=== PATIENT | male | born 1975 | race Caucasian/White ===

== ENCOUNTER 2016-12-17 07:30 | Inpatient (IN) | payer OTHER ==
[~2016-12-17] VITALS: Ht 182.9 cm; Wt 102.8 kg
--- NOTE | ~2016-12-17 | TXPLANREV ---
"PATIENT: ROSHNI LUGO | | [facility] [facility] UNIT #: [id number] | [address] AGE/SEX: 41 M : 73 | [address] | [place] [address] ADMIT/REG DATE: 12/17/16 | ROOM: [facility] LOC: ADTC | ADTC | Treatment Plan/Staffing Review Date: 12/26/16 Treatment plan was reviewed and determined appropriate as written: Yes Treatment plan was reviewed and the following changes/addition/deletions are necessary: No changes client is working on feelings letters. Discharge plans were reviewed and determined appropriate as previously documented: Yes Discharge plans were reviewed and determined to be as follows: Possibly lookingat a 3/4 house in [place]. Other pertinent issues discussed during this staffing review include: Client is doing well. Staff Present: Smitha Kaur PRIMARY COUNSELOR: True Montes De Oca, ASUNCION, LADC, CSAT Client Signature Counselor Signature Date Time "
--- NOTE | ~2016-12-17 | TXPLANREV ---
"PATIENT: ROSHNI LUGO | | [facility] UNIT #: [id number] | [address] AGE/SEX: 41 M : 73 | [address] | [place] [address] ADMIT/REG DATE: 12/17/16 | ROOM: [facility] LOC: ADTC | ADTC | Treatment Plan/Staffing Review Date: 01/09/17 Treatment plan was reviewed and determined appropriate as written: Yes Treatment plan was reviewed and the following changes/addition/deletions are necessary: No changes Discharge plans were reviewed and determined appropriate as previously documented: Yes Discharge plans were reviewed and determined to be as follows: Client is scheduled to discharge on 01/21/17 but will leave on 01/20/17 after family group. Other pertinent issues discussed during this staffing review include: Client getting into and OP program when he discharges from here. Staff Present: Fiona Shields, Pam Dunlap, Christine Hamilton, Sharon Zavaleta PRIMARY COUNSELOR: True Montes De Oca, ASUNCION, ROSE, VICT Client Signature Counselor Signature Date Time "
--- NOTE | ~2016-12-17 | INDIVTXPLN ---
"PATIENT: ROSHNI LUGO | | [facility] UNIT #: [id number] | [address] AGE/SEX: 41 M : 73 | [address] | [place] [address] ADMIT/REG DATE: 12/17/16 | [facility] | Individualized Treatment Plan Date: 12/23/16 Problem Statement/Issue Identified: I struggles having healthy relationships. Goal: I want to be able to have a healthy relationship. Objectives/Activities to achieve goal: 1. I will read and complete a relationship packet and process it with my counselor. Due Date:12/26/16 Complete: Incomplete: Client signature Date Counselor signature Date Outcome/Measurement of Progress Towards Goal: Counselor's signature Date "
--- NOTE | ~2016-12-17 | RESCARESUM ---
"PATIENT: ROSHNI LUGO | | [facility] UNIT #: [id number] | [address] AGE/SEX: 41 M : 73 | [address] | [place] [address] ADMIT/REG DATE: 12/17/16 | ROOM: [facility] LOC: ADTC | ADTC | Summary of Residential Care Primary Counselor: [facility] Date of Admission: 12/17/16 Date of Discharge: 01/13/17 Referral Source: [facility] Primary Care Provider Prior to Admission: None Admitting Diagnosis: F10.20 Alcohol Use Disorder Severe, F11.10 Opioid Use Disorder Severe, F12.20 Pot Use Disorder Moderate Discharge Diagnosis: Same Goals Achieved: Client identified things to work on from his Getting Started Packet, He identified how he is powerless over chemicals and how he life became unmanagable with his step one. Client worked on resentments, how to identify and share his feelings and he identified his using triggers and what he can do to avoid or deal with those triggers. Continued Obstacles to Sobriety/Relapse Issues: Over confodence, boredome and skiping meetings. Family Issues Addressed: Client shared feelings letters with his family. y Individual Therapy y Group Therapy y Educational Series on Substance Abuse y Parents/Significant Others Attended Family Program n Acute Medical Problems During the Course of Treatment n Transferred to Hospital During the Course of Treatment y Accepting of Substance Abuse Problem n Non-accepting of Substance Abuse Problem n Required Psychological or Psychiatric Consultation During the Course of Treatment Completed AA Step # one During This Level of Care Significant Incidences During Treatment: Client did well in treatment. Reason For Discharge: y Completed Residential [place] Goals and Ready For Next Level of Care n Left Tx Against Medical Advice/Treatment Goals Not Complete n Completed Residential Tx Goals But Refusing Continuing Care Recommendations n Discharged Due to Noncompliance/Treatment Goals not Completed n Discharged Earlier Than Planned Due to: Continuing Care Plan/Recommendations: n Intensive Partial Care y Sponsor n Partial Care PATIENT: ROSHNI LUGO | | [facility] UNIT #: [id number] | [address] AGE/SEX: 41 M : 73 | [address] | [place] [address] ADMIT/REG DATE: 12/17/16 | ROOM: [facility] LOC: ADTC | ADTC | Summary of Residential Care y AA Meetings/NA Meetings y Outpatient n Co-dependency Services n Therapeutic Community n [address] y [address] House n Mental Health Therapy n Marriage Counseling n Other Specific Continuing Care Plan: Client is still looking fora a place to live and will set up aftercare when he has done that. PRIMARY COUNSELOR: True Montes De Oca, ASUNCION, LADC, CSAT"
--- NOTE | ~2016-12-17 | INDIVTXPLN ---
"PATIENT: ROSHNI LUGO | | [facility] UNIT #: [id number] | [address] AGE/SEX: 41 M : 73 | [address] | [place] [address] ADMIT/REG DATE: 12/17/16 | ROOM: [facility] LOC: ADTC | ADTC | Individualized Treatment Plan Date: 12/23/16 Problem Statement/Issue Identified: I continued to use even though I was in a treatment program. I have not been able to manage my life in a positive manner. Goal: I want to learn about my addiction and identify consequences of my use and learn to work the AA/NA program. Objectives/Activities to achieve goal: 1. I will read and fill out the Getting Started packet, identifying my feelings about being in treatment and identifying things I do now and things I need to work on as evidenced by his progress notes. Due Date:12/23/16 Complete: Incomplete: 2. I will read a Step 1 booklet and fill out a Step 1 packet identifying 20+ ways I have hurt others and compromised my values (page 10 - 11 of Step 1). This will also help me see how I am powerless and that my life has become unmanageable. I will share it with my counselor and selected parts in group as evidenced by individual and group notes. Due Date:12/23/16 Complete: Incomplete: 3. I will talk at a minimum of 2 meetings a week and get a phone number of a male sponsor I can call while I am in treatment on weekends. I will report my progress to my counselor as evidenced by individual notes. Due Date:On going Complete: Incomplete: 4. I will create gratitude list and add one thing to it each day. Due Date: Ongoing Complete: Incomplete: Client signature Date Counselor signature Date Outcome/Measurement of Progress Towards Goal: Counselor's signature Date "
--- NOTE | ~2016-12-17 | INDIVTXPLN ---
"PATIENT: ROSHNI LUGO | | [facility] UNIT #: [id number] | [address] AGE/SEX: 41 M : 73 | [address] | [place] [address] ADMIT/REG DATE: 12/17/16 | ROOM: [facility] LOC: ADTC | ADTC | Individualized Treatment Plan Date: 01/07/17 Problem Statement/Issue Identified: I have struggled stopping using chemicals in the past. Goal: I want to stop using chemicals. Objectives/Activities to achieve goal: 1. I will complete a relapse prevention packet to identify my using triggers adn learn hoe to avoid or deal with those triggers. Due Date:01/13/17 Complete: Incomplete: Client signature Date Counselor signature Date Outcome/Measurement of Progress Towards Goal: Counselor's signature Date "
--- NOTE | ~2016-12-17 | TXPLANREV ---
"PATIENT: ROSHNI LUGO | | [facility] UNIT #: [id number] | [address] AGE/SEX: 41 M : 73 | [address] | [place] [address] ADMIT/REG DATE: 12/17/16 | ROOM: [facility] LOC: ADTC | ADTC | Treatment Plan/Staffing Review Date: 01/02/17 Treatment plan was reviewed and determined appropriate as written: Yes Treatment plan was reviewed and the following changes/addition/deletions are necessary: No changes client is working on feelings letters. Discharge plans were reviewed and determined appropriate as previously documented: Yes Discharge plans were reviewed and determined to be as follows: Client is scheduled to discgarge on 01/14/17 and is still talking about a [address] in [place]. Other pertinent issues discussed during this staffing review include: Client is doing well. Staff Present: Sharon Zavaleta, Smitha Griffith, Dionicio Gonzalez PRIMARY COUNSELOR: True Montes De Oca, ASUNCION, KIMBERLYNC, CSAT Client Signature Counselor Signature Date Time "
--- NOTE | ~2016-12-17 | INDIVTXPLN ---
"PATIENT: ROSHNI LUGO | | [facility] UNIT #: [id number] | [address] AGE/SEX: 41 M : 73 | [address] | [place] [address] ADMIT/REG DATE: 12/17/16 | ROOM: [facility] LOC: ADTC | ADTC | Individualized Treatment Plan Date: 12/26/16 Problem Statement/Issue Identified: I struggle identifying and sharing my feelings. Goal: I want to be able to identify and share my feelings. Objectives/Activities to achieve goal: 1. I will write feelings letters to my parents, son, daughter and girl friend. I will share them in family group with which the ones that can make it. Due Date:01/06/17 Complete: Incomplete: Client signature Date Counselor signature Date Outcome/Measurement of Progress Towards Goal: Counselor's signature Date "
--- NOTE | ~2016-12-17 | CLPRLASSUM ---
"PATIENT: ROSHNI LUGO | | [facility] UNIT #: [id number] | [address] AGE/SEX: 41 M : 73 | [address] | [place] [address] ADMIT/REG DATE: 12/17/16 | ROOM: [facility] LOC: ADTC | ADTC | Client Problem List/Assessment Summary Date: 12/23/16 Problems identified by the client: Drinking, relationships adn life stresses. Problems identified by significant others: Depression, drinking and stress. Client's Strengths: Hard Worker. Problem List: Code: T Client lacks acceptance of things he can't control, which can set client up for relapse. Code: T Client has learned to deny or stuff feelings; needs to learn to identify and process feelings with safe people to acquire the necessary skills to maintain shelter sobriety. Code: T Client relapsed/returned to alcohol &/or drug usage after previous treatment attempts. Code: T Client has relationship problems; need for knowledge in communicating with feelings in significant relationships to help obtain support for treatment and recovery. Code Ervin: T: to be addressed during course of treatment O: problem noted, expected to resolve itself with abstinence--specific tx plan not required R: problem noted, will be referred upon discharge PRIMARY COUNSELOR: True Montes De Oca, ASUNCION, LADC, CSAT"
--- NOTE | 2016-12-17 14:47 | NUR ---
Pratima 1 Hr/Client shared drinking got way out of control adn he ended up in detox and here. Wants to stop drinking as he came here on his own unlike the last time he went to tx to save his job. Relationships, difficult people and life stressors are his issues.
--- NOTE | 2016-12-17 18:47 | NUR ---
Education: 1 Hour. Client attended presentation given by [facility] AIDS/STDS/HIV. HIV testing was available.
--- NOTE | 2016-12-17 20:18 | NUR ---
Relapse Prevention,11/15 1.0, Client attended and participated in relapse prevention education which focused on internal and external triggers.
--- NOTE | 2016-12-17 22:55 | NUR ---
Tech note : Client participated in rec, guided meditation and attende an onsite AA meeting. Client was checked into room and gave his first intro. He was not seen by the
--- NOTE | 2016-12-18 05:29 | NUR ---
tech note: client was motionless in no distress at all bed checks.
--- NOTE | 2016-12-18 10:15 | NUR ---
Tech Notes: Client is working on Getting started
--- NOTE | 2016-12-18 11:30 | NUR ---
GROUP 1.5 HRS. 1:10 Client was oriented to purpose and rules of group. He shared that he went to treatment years ago in [place] when he was employed by the [employer]. Client indicates he has a different good job on the line at this time. Peers processed HOW TO GET STARTED IN TREATMENT and STEP 1 ASSIGNMENTS including compromising values and effects on others. This client appeared attentive but sat quiet.
--- NOTE | 2016-12-18 16:00 | NUR ---
SPIRITUAL EDUCATION 1 HR. We started a two part education on Forgiveness today and group discussion on mccarthy points.
--- NOTE | 2016-12-18 23:16 | NUR ---
Tech note:Client participated in rec-worked on beaded projects SE:positive day
--- NOTE | 2016-12-18 23:39 | NUR ---
Education: 1 hour lecture on step 2 & 3 given by counselor
--- NOTE | 2016-12-19 04:37 | NUR ---
Bed note: client was in bed with eyes closed and no distress at all bed checks, except said lana to tech at 2nd bed check
--- NOTE | 2016-12-19 11:30 | NUR ---
AM GRP 1.5 HRS, Ratio 1:11/ Clt sat quietly until prompted, then shared about his marraige, his kids, now 15 and 20 and his daughter being distant and he's getting closer to his son. He shared that his exwife is drinking, so he thinks his daughter is protecting her and therefore worried about Mom any time he sees her, which is not often. He stated he knows he needs to earn her trust, as he was gone from their lives for awhile.
--- NOTE | 2016-12-19 14:20 | NUR ---
Education 1 Hour: Client heard a presentation on, "Marijuana."
--- NOTE | 2016-12-19 14:54 | NUR ---
Tech Note: Client participated in Spiritual Enrichment in the morning and walked in the halls for afternnon exercise.
--- NOTE | 2016-12-19 16:44 | NUR ---
Education: 1hr Participated in Step 2 work group. Very involved in the group discussion.
--- NOTE | 2016-12-19 23:04 | NUR ---
Tech Note: Client participated in rec and attended A.A.Meeting.
--- NOTE | 2016-12-19 23:20 | NUR ---
Education Note: Client watched the healthy families video which lasted an hour.
--- NOTE | 2016-12-20 04:38 | NUR ---
Bed note: Client was in bed with eyes closed and no distress at all bed checks, except he was awake at first bed check
--- NOTE | 2016-12-20 11:30 | NUR ---
Group 1.5 hr/ 11:1 Clients heard peers share GS packet and he shared his GS packet. Client wants recovery bad he voices, wants help to learn tools. 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 He did mention his had affair with his best friend when related to peer on past resentments. He said he is too nice and has been working on saying "no". Voiced his children are important to him.
--- NOTE | 2016-12-20 15:26 | NUR ---
PEER REVIEWS 1 HR: Clt participated in peer review process and was able to give open and honest feedback to those receiving a review.
--- NOTE | 2016-12-20 16:22 | NUR ---
Tech Note: Client watched a video "How to Sabotage Your Treatment" and is working on Getting Started.
--- NOTE | 2016-12-20 23:36 | NUR ---
TECH NOTE: Client participated in guideline reading, watched tv/movies SE: peer review
--- NOTE | 2016-12-21 04:47 | NUR ---
BED NOTE: Client was in bed, motionless with eyes closed all three bed checks.
--- NOTE | 2016-12-21 12:00 | NUR ---
PEER REVIEWS 1 HR: Clt participated in peer review process and was able to give open and honest feedback to those receiving a review.
--- NOTE | 2016-12-21 16:05 | NUR ---
Tech Note: Client went to AA mtg at [address] [place] [address]. Is working on the Big Book.
--- NOTE | 2016-12-21 20:01 | NUR ---
TECH NOTE: Client played Catch Phrase for REC, attended off site AA meeting, watched TV/movies. SE: AA meeting
--- NOTE | 2016-12-22 04:47 | NUR ---
Bed Note: Clt lay motionless in bed with eyes closed showing no distress at all bed checks. Clt came out of room to use restroom at 0215 hrs saying bathroom in clt room was locked tech unlocked it.
--- NOTE | 2016-12-22 15:55 | NUR ---
Tech Note: Client participated in Big Book Study. Client stated that he is working on reading the Big Book. Client attended yarsanism.
--- NOTE | 2016-12-22 22:51 | NUR ---
TECH NOTE: Client attended AA panel, participated in community clean and watched tv/movies. SE: AA panel
--- NOTE | 2016-12-23 04:24 | NUR ---
Bed Note: Clt lay motionless in bed with eyes closed showing no distress at all bed checks.
--- NOTE | 2016-12-23 10:15 | NUR ---
Cuauhtemoc notes: Client is working on BB and mtg with shannon
--- NOTE | 2016-12-23 12:41 | NUR ---
Education Note: Client attended educational speaker Kit on Crossaddiction.
--- NOTE | 2016-12-23 13:28 | NUR ---
Group 1.5hr/ 12:1 Clients heard peer share about guilt and many client gave feedback and related. This client did get involved.
--- NOTE | 2016-12-23 15:01 | NUR ---
Pratima 1 Hr/Client shared his step one and did a good job looking at hios powerlessness and unmanagability. Client shared he is struggling with sleep but does not appear to be too tired.
--- NOTE | 2016-12-23 16:00 | NUR ---
RECOVERY 101 1 HR/ Clients all brought big books, were given highlighters and shown tools they can use in the big Book on: acceptance, 1/2measures, 12 promises, living in the solution-not the problem, resentments, 2 week prayer to forgiveness, etc. Clients took turns reading and some commented and asked questions.
--- NOTE | 2016-12-23 18:08 | NUR ---
Family contact/Clients mom was talked to and she set up this and next Friday as possible days to come to family. Depression is what she thought brings him down.
--- NOTE | 2016-12-23 18:09 | NUR ---
Trauma note/Client does not have any trauma he is willing to work on.
--- NOTE | 2016-12-23 20:19 | NUR ---
Education: 1 hour lecture on feelings given by counselor
--- NOTE | 2016-12-23 20:19 | NUR ---
Education: 1 hour lecture on feelings given by counselor
--- NOTE | 2016-12-23 23:42 | NUR ---
Tech Note: Client played a game for rec, and attended N.A.Meeting. SE: N.A.Meeting
--- NOTE | 2016-12-24 04:01 | NUR ---
bed note: client was in bed with eyes closed and no distress at all bed checks.
--- NOTE | 2016-12-24 11:30 | NUR ---
GROUP 1.5 HRS. 1:9 Group discussion included how to deal with feelings appropriately and relapse triggers. This client was mostly quiet and appeared attentive.
--- NOTE | 2016-12-24 15:00 | NUR ---
BIG GRP 5:21/ We had a big grp to confront sleeping pills being on the unit, dishonesties, and anything else going on that needed to be addressed. Clt denied knowing someone had brought anything on the unit. He sat mostly quiet, and offered little feedback.
--- NOTE | 2016-12-24 15:14 | NUR ---
Education Note: Client heard a presentation on, "Grief."
--- NOTE | 2016-12-24 15:24 | NUR ---
Tech Note: Client particiapted in light stretching for morning exercise and walked in the halls in the afternoon. Client stated that he is working on, "Relationships" and reading the Big Book.
--- NOTE | 2016-12-25 00:06 | NUR ---
Education: 1 hour lecture given by Counselor on Step 1
--- NOTE | 2016-12-25 00:16 | NUR ---
Tech note: client worked on projects for the alumni mikayla for rec and attended AA meeting SE: Allison and is 3 weeks clean
--- NOTE | 2016-12-25 04:16 | NUR ---
Bed Note: Clt lay motionless in bed with eyes closed showing no distress at all bed checks.
--- NOTE | 2016-12-25 10:28 | NUR ---
Tech Notes: Client is working on Relationships.
--- NOTE | 2016-12-25 12:58 | NUR ---
Group 1.5hours 1:11 Clients discussed the topic of resentments. Client shared how he was having trouble finding the willingness to let go of his resentment. He read page 552 in the Big Book and talked about how he was going to try and work on letting go. Student: Kevyn Shields BS [facility]
--- NOTE | 2016-12-25 13:26 | NUR ---
Education note: Client attended education by [facility]
--- NOTE | 2016-12-25 17:55 | NUR ---
SPIRITUAL EDUCATION 1 HR. Today we discussed ways to quiet the mind and meditation and creativity.
--- NOTE | 2016-12-25 22:57 | NUR ---
tech note: Client played a game for recreation & attended onsite NA meeting. SE: Group.
--- NOTE | 2016-12-26 02:17 | NUR ---
Education: 1 Hour. Client attended "Unresolved Anger" video & discussion presented by staff.
--- NOTE | 2016-12-26 04:59 | NUR ---
BED NOTE: Client was in bed motionless with eyes closed all three bed checks.
--- NOTE | 2016-12-26 11:17 | NUR ---
Tech Note: Client participated in Spiritual Enrichment and followed programming.
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
--- NOTE | 2016-12-26 13:07 | NUR ---
Education 1 Hour: Client heard a presentation from a member of the recovery community, who shared his experience, strength and hope.
--- NOTE | 2016-12-26 14:00 | NUR ---
Family session 1 Hr/Clients parents and GF presented for a session and shared how his use has affected them and how they have not given up.
--- NOTE | 2016-12-26 16:40 | NUR ---
FAMILY EDUCATION 3 HRS. Client was accompanied by his parents and girlfriend. They took part in the discussion on the disease concept. Client shared chemical history and the consequences. Girlfriend tearful at time and advised she has been attending García. All 3 were encouraged to attend García. Mom identified fear and effects on client's kids while dad stated he just kept quiet because he didn't know what to do.
--- NOTE | 2016-12-26 20:20 | NUR ---
Education 1HR: Clt watched video by Jaye Teran on Step 5.
--- NOTE | 2016-12-26 22:32 | NUR ---
TECH NOTE: Client played Catch Phrase for REC, participated in Guided Meditation and attended onsite AA meeting. SE:all day
--- NOTE | 2016-12-27 04:24 | NUR ---
Bed Note: Clt lay motionless in bed with eyes closed showing no distress at last two bed checks. The first bed check clt looked at tech.
--- NOTE | 2016-12-27 12:01 | NUR ---
Group 1.5 Hr Ratio 1:10/Topics today were a step one a grief letter and a getting started packet. Client shared positive feedback with peers sharing issues and assignments.
--- NOTE | 2016-12-27 13:00 | NUR ---
PEER REVIEWS 1.25 HRS: Clt participated in peer reviews and took a risk to give open and honest feedback to those receiving a review.
--- NOTE | 2016-12-27 15:41 | NUR ---
Tech Note: Client watched a video "It Can't Happen To Me" and is working on a Relationships packet and Feelings Letters.
--- NOTE | 2016-12-27 22:26 | NUR ---
Tech note : Client watched tv, played games and talked on the phone SE; All day
--- NOTE | 2016-12-28 04:59 | NUR ---
Bed note: Client was in bed with eyes closed and no distress at all bed checks.
--- NOTE | 2016-12-28 15:08 | NUR ---
Tech Note: Client attended N.A.Panel and is working on Big book, and relationship packet
--- NOTE | 2016-12-28 20:31 | NUR ---
tech note: client played game for recreation & attended offsite AA meeting. Client talked on the phone & watched tv. Tech found a styrofoam cup in clients room with chew in it-cup was taken and put @ tech station. SE: Family.
--- NOTE | 2016-12-28 20:35 | NUR ---
tech note: client played game for recreation & attended offsite AA meeting. Client talked on the phone & watched tv. SE: Family.
--- NOTE | 2016-12-29 12:04 | HP ---
ADMIT: 12/17/2016 RM/LOC: [facility] MR#: [id number] [address] [facility] [address] [place] [id number] KANNAN LUGO [address] [address] History and Physical SEX: M AGE: 41 : 1975 DATE OF SERVICE: CHIEF COMPLAINT: Alcohol dependency. HISTORY OF PRESENT ILLNESS: Kannan is a 41-year-old, , white male, admitted from [facility] to residential level treatment on December 17 after detox, December 06 through December 17. States his alcohol use had escalated to the point and it was causing problems in his personal relationships and also at his job with [employer], and he decided to detox and get clean, straight, and sober. Kannan's drug of choice on admission is alcohol. He first started drinking at 12 years of age with his brothers. Conor high, he would drink 2 to 4 drinks at the most once a month. High school, he started drinking a 6 pack 1 to 2 times a month. Alcohol use increased in his 20s. By 24, he was drinking 6 to 12 beers daily. States for the last 10 years, he has been drinking hard liquor and will drink on average 750 mL bottle of vodka a day. His last drink was December 06, 2016. He admits to shakes and tremors, but denies any hallucinations, seizures, or DTs. His second drug of choice is probably cannabis. He states he has used probably 50 to 100 times in his life. His heaviest use was 24 to 34 years of age when it was sporadic. 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 He states the last use was over 6 months ago. He additionally admits to abusing pain pills in the past. He states he has used a number of pain pills including OxyContin, oxycodone, and hydrocodone. States he only uses the pain pills when he has had surgeries, but he states he has always took more than he was suggested to take, but he found them to be fairly ineffective. He denies any other illicit drug use other than some sporadic use. He admits to using methamphetamines 3 or 4 times, cocaine a dozen times, and tried mushrooms once. PAST MEDICAL HISTORY: Operations include fusion of C6-C7 in 2011, left shoulder surgery twice in 2015, right knee scope in 1996, left knee scope in 2015, hand surgeries twice. Illnesses include a history of borderline elevated blood pressure. MEDICATIONS: Include recent initiation of clonidine and hydrochlorothiazide. He states he would like to get off both medications. ALLERGIES: NONE. SOCIAL HISTORY: He is a 41-year-old, , white male. He works for [employer] and works as an industrial electrician. He smokes a pack of cigarettes a day and chews a can every 3 days. He has 2 children. ADMIT: 12/17/2016 RM/LOC: [facility] MR#: [id number] [facility] [address] [id number] KANNAN LUGO [address] [place] [address] History and Physical SEX: M AGE: 41 : 1975 FAMILY HISTORY: Remarkable for a pacemaker in maternal grandfather and brothers, who have alcohol use disorders. REVIEW OF SYSTEMS: Remarkable for a sleep disorder, history of elevated blood pressures at times, and recent elevated liver enzymes. Remainder of review of systems is negative. PHYSICAL EXAMINATION: VITAL SIGNS: He is 6 feet 0 inches with a weight of 102.8 kg, blood pressure 135/76 with a pulse of 91, temperature 96.7, respiratory rate 20. GENERAL: Exam shows him to be alert and athletic appearing 41-year-old male. HEENT: Pupils are reactive. TMs are normal. Throat is unremarkable. Dentition, good repair. NECK: Without nodes or mass. HEART: Regular without murmur. LUNGS: Clear. ABDOMEN: Soft, nontender, and benign. Some mild hepatomegaly. AND RECTAL: Deferred. EXTREMITIES: Reveal no clubbing, cyanosis, edema, or tracks. NEUROLOGIC: Exam is normal including light touch, strength, and DTRs. LABORATORY DATA: Recent labs include a chemistry panel on December 06 remarkable for elevated AST at 94, elevated ALT at 100. UA that was normal on December 05, and on December 06 CBC that was normal with a hemoglobin of 17.6. ASSESSMENT: 1. Alcohol use disorder, severe; cannabis use disorder, moderate. Full sustained remission. 2. Opiate use disorder, mild. Full sustained remission. 3. Tobacco dependency. ADMIT: 12/17/2016 RM/LOC: [facility] MR#: [id number] [address] [id number] KANNAN LUGO [address] [place] [address] History and Physical SEX: M AGE: 41 : 1975 4. Sleep disorder. 5. History of elevated blood pressures, rule out hypertension and alcoholic hepatitis. PLAN: Place him on a multivitamin and thiamine given his history of alcohol abuse and dependency. We will discontinue his hydrochlorothiazide and clonidine due to the patient's intolerance and insistence on stopping the medications. We will monitor his blood pressure and heart rate and initiate hypertensive therapy if indicated. We will use melatonin for sleep disorder and proceed with drug and alcohol abuse dependency treatment and counseling and further evaluation and management based on his course during hospitalization. Please see his hospital record for the details. Eben Temple MD/ sena JOB #: [id number] CC: Eben Temple, Attending Physician FAMILY PHYSICIAN, Family Physician
--- NOTE | 2016-12-29 15:41 | NUR ---
Tech Note: Client is working on FL's, and relationship packet. He had a visit. Was late to community meeting.
--- NOTE | 2016-12-29 22:08 | NUR ---
Tech note: Participated in community clean, attended AA panel with Alexis Chan SE; visit
--- NOTE | 2016-12-30 04:57 | NUR ---
Bed note: Client was in bed with eyes closed and no distress at all bed checks.
--- NOTE | 2016-12-30 11:30 | NUR ---
Experiential Group 1.5hr/ Clients all participated in Family Sculpturing by role-playing, relating and giving feedback. This client was involved and attentive.
--- NOTE | 2016-12-30 13:26 | NUR ---
Education note: Client attended education speaker Tasha on Tobacco.
--- NOTE | 2016-12-30 14:00 | NUR ---
INDIVIDUAL SESSION 1 HR: Met with this client in the abscence of his Primary Counselor (True). Client was to be working on FEELINGS LETTERS but did not. Had less than a paragraph written to his SO but didn't do any other work on them. Client's SO and mom were to come today and he said they would stay for group tonight, so it would have been the best time to share letters. He does not think his mom will be back next week. He was pretty evasive. Client was very talkative throughout, but seemed to talk in circles and often didn't provide direct answers so staff would have to refer back. It appeared that client blames his ex- for his strained relationships with his children, especially his daughter. Client explained that he took a job in [place] because he had to to keep up with his child support. Client said he made good money but during the course of the session, admitted that he rarely saw them and is behind in child support, and has a lot of debt. Sounds like he never did seek legal help to sort through the visitation, etc. Client did share a couple of pages of his FAMILY RELATIONSHIPS packet which he said he was nearly done with but we ran out of time.
--- NOTE | 2016-12-30 14:16 | NUR ---
Tech Note: client is working on Fl's and mtg with shannon.
--- NOTE | 2016-12-30 18:02 | NUR ---
Education: 1 Hour. Client attended "Forgiveness" lecture presented by staff.
--- NOTE | 2016-12-30 21:00 | NUR ---
FAMILY GROUP 6:1/2 HR: Client, peers and attending family members heard one young female IOP client process FEELINGS LETTERS to each of her parents. The letters were well written and appeared to be sincere. Several peers related and shared specifics from their own experience. This client's mom and another were here to support their children who also provided feedback. This client's Significant Other attended as well. She admittedly poured out his alcohol or insisted that he pour it out in front of her in hopes that this would somehow reinforce his will to stop drinking. She indicated that she has attended Garc[facility] and sees how this can help as when they argue, he runs home to mom and dad's and she has no family close by. Client and family members heard that it is really important for them to return next week and share Feelings letters. SO said she will be here. Mom was a little hesitant but I'm guessing she and maybe dad will come as well.
--- NOTE | 2016-12-30 23:02 | NUR ---
tech note: client played a game for recreation & attended onsite NA meeting. SE: Family.
--- NOTE | 2016-12-30 23:21 | NUR ---
tech note: client attended Family Session. SE: Family.
--- NOTE | 2016-12-31 04:33 | NUR ---
tech note: client was motinless in no distress at all bed checks.
--- NOTE | 2016-12-31 11:58 | NUR ---
AM GROUP 11:1/1.5 HR: Client and peers heard several process assignments and issues. Most clients related in some manner and were quick to offer personal experience and feedback. This client was active throughout with clarifying questions, personal sharing and feedback. Client suggested that peer's mom may have had a sex addiction when talked about all the men in her mom's life when she was growing up. Client referred to it as a "real addiction." He was supportive of another female who told her SO and her oldest son to leave Friday when they showed up high on pot.
--- NOTE | 2016-12-31 14:00 | NUR ---
FAMILY EDUCATION 3 HRS Client attended group wit his SO and mother. Client's SO shared about attending [facility] and that she would be back next week. Client's mother said that she would not be able to but his father might. Student: Kevyn Ross
--- NOTE | 2016-12-31 15:33 | NUR ---
Tech Note: Client attended programming on Relapse Prevention and is working on Feelings Letters and the Big Book.
--- NOTE | 2016-12-31 16:29 | NUR ---
Relapse Prevention, 11/18 ration, 1.0 hours, Client attended and participated in relapse prevention education which focused on relapse triggers/issues.
--- NOTE | 2016-12-31 22:18 | NUR ---
TECH NOTE: Client attended Alumni meeting and on-site AA meeting. SE: meeting with counselor
--- NOTE | 2016-12-31 22:55 | NUR ---
EDUCATION NOTE: 1HR lecture on Shame given by counselor
--- NOTE | 2017-01-01 04:39 | NUR ---
Bed note: Client was in bed with eyes closed and no distress at all bed checks.
--- NOTE | 2017-01-01 10:03 | NUR ---
Tech note: Client is working on Fl's and Halie Spann
--- NOTE | 2017-01-01 11:27 | NUR ---
RES GROUP 1.5 HRS. RATIO 11/05. Topics today were assignments shared, addiction itself, craving, and spirituality. This client did a nice job of confronting a peer ; he compared her doctor shopping for pills to her behavior he has seen of hunting for mental illnesses to justify taking pills. He also had great input on spirituality discussion and said his parents found it very easy to pray and seek God but he does not.
--- NOTE | 2017-01-01 12:44 | NUR ---
Education note: Client attended speaker Rashad Marti
--- NOTE | 2017-01-01 16:09 | NUR ---
SPIRITUAL EDUCATION 1 HR. Topic today was on how addiction is a disease of body mind and spirit and how the Steps fit in treating the SPIRIT. We also talked about ways to spirituality, payoffs, and how spirituality is related to both addiction and recovery.
--- NOTE | 2017-01-01 18:15 | NUR ---
Education: 1 Hour. Client attended "Boundaries" lecture presented by staff.
--- NOTE | 2017-01-01 22:08 | NUR ---
Tech note : Client played pictionary for rec and attended an onsite NA meeting. SE: Spirituality
--- NOTE | 2017-01-02 05:18 | NUR ---
tech note: client was motionless in no distress at all bed checks.
--- NOTE | 2017-01-02 09:40 | NUR ---
I.S. 1 Hr/Client sharedthe rest of his relationship packet and his feelings letter to his SO as well as what he got out of the barikin thinkin packet. Client also did safe place with EMDR and shared he has been sleeping better.
--- NOTE | 2017-01-02 11:30 | NUR ---
AM GRP 1.5 HRS, Ratio 1:11/ Clt offered good feedback to those who brought up issues. His feedback is generally nurturing and positive.
--- NOTE | 2017-01-02 15:43 | NUR ---
Tech Note: Client went for an outdoor walk in the afternoon. Client stated that he is working on writing Feelings Letters.
--- NOTE | 2017-01-02 15:55 | NUR ---
step education/1 hr/ Focus was on step 6 and looking at character defects. Each person shared some questions and answers and identified what character defects they are ready to let go of and what ones they are not willing to let go of. This client participated.
--- NOTE | 2017-01-02 16:33 | NUR ---
Education 1 Hour: Client heard a presentaion on "Wellness in Recovery."
--- NOTE | 2017-01-02 23:04 | NUR ---
Tech note: Client worked on craft projects for the dance for rec and attended AA meeting SE:SHAHZAD fraser
--- NOTE | 2017-01-03 00:08 | NUR ---
Education note: Clients watched a movie on "my attitude' by Gael Timmons.
--- NOTE | 2017-01-03 04:52 | NUR ---
Bed note; client was motionlees, with eyes closed at all bed checks.
--- NOTE | 2017-01-03 11:30 | NUR ---
Group 1.5 hr/ 11:1 Clients all got into discussion about how they found spirituality or struggle with HP concepts and a peer shared GS packet. This client shared how he has struggle with Higher Power, so following what Big Book says. He is working on resentments and sees how that hurt him, and said addiction was his HP. He did like a verse off of a sheet that was helpful.
--- NOTE | 2017-01-03 14:06 | NUR ---
PEER REVIEWS 1.25 HRS: Clt participated in peer reviews and took a risk to give open and honest feedback to those receiving a review.
--- NOTE | 2017-01-03 16:09 | NUR ---
Tech Note: Client went with group for outside walk and watched "Marijuana", by Mike Timmons, for education. Clt is working on Feelings Letters.
--- NOTE | 2017-01-03 23:41 | NUR ---
Tech Note: Client read guidelines with peers. Client attended A.A. SE: peer review
--- NOTE | 2017-01-04 05:31 | NUR ---
Bed Note: Client was motionless with eyes closed at all bed checks.
--- NOTE | 2017-01-04 15:41 | NUR ---
Tech Note: Client working on Feelings Letters and had visitors.
--- NOTE | 2017-01-04 20:28 | NUR ---
Tech Note: Client played a game for rec. They also attended the A.A.Meeting at [facility] and [place]. SE: Visitation
--- NOTE | 2017-01-05 05:27 | NUR ---
Bed Note: Client was motionless with eyes closed at all bed checks.
--- NOTE | 2017-01-05 15:17 | NUR ---
Tech Note: Client participated in Big Book Study. Client stated that he is working on writing Feelings Letters.
--- NOTE | 2017-01-05 23:30 | NUR ---
Client attended Arjun and helped with community clean. SE: Arjun
--- NOTE | 2017-01-06 05:01 | NUR ---
Bed Note: Client was motionless at first bed check, up using restroom and second bed check, and rolling over at last bed check. A bit of a restless nighgt it seemed.
--- NOTE | 2017-01-06 10:08 | NUR ---
Tech note: Client is sick in his room
--- NOTE | 2017-01-06 11:00 | NUR ---
Client is sick and will remain in his room all day.
--- NOTE | 2017-01-06 22:38 | NUR ---
TECH NOTE: Client was in room sick, was checked on by tech throughout the night.
--- NOTE | 2017-01-06 23:57 | NUR ---
Education: 1 Hour. Client attended "Adult Children" presentation given by staff.
--- NOTE | 2017-01-07 05:21 | NUR ---
BED NOTE: Client talked to tech first two bed checks, was motionless with eyes closed last check.
--- NOTE | 2017-01-07 09:03 | NUR ---
I.S. 1 hr/Client shared his feelings letters and did ok on most of them just a few adjustments. Called his work and found out what he needs to do to be able to go back to work. Forms were faxed to fill out.
--- NOTE | 2017-01-07 11:34 | NUR ---
Esther res group/ratio 1:10/ Group assignments shared were step one and feelings letters. This client gave some good feedback.
--- NOTE | 2017-01-07 16:25 | NUR ---
Relapse Prevention; 1.0 hours; Client attended and actively participated in relapse prevention which focused on compulsive behaviors and relapse.
--- NOTE | 2017-01-07 16:25 | NUR ---
Tech Note: Client attended speaker meeting, presented by Nutritional Services, and Relapse Prevention education. Client is currently working on Feelings Letters.
--- NOTE | 2017-01-07 23:20 | NUR ---
Education note: 1 hour lecture given by counselor on "Self Esteem"
--- NOTE | 2017-01-07 23:32 | NUR ---
Tech note: Client worked on projects for the alumni mikayla for rec and attended AA meeting SEF: recieved 30 day coin in AA
--- NOTE | 2017-01-08 04:11 | NUR ---
BED NOTE: Client was in bed, motionless with eyes closed all three bed checks.
--- NOTE | 2017-01-08 10:49 | NUR ---
Tech note: Client is working on Relapse prevention
--- NOTE | 2017-01-08 11:40 | NUR ---
GROUP 1.5 HRS. 1:11 Group discussion included betraying values and effects on others as well as being honest and old behaviors especially dishonesty and keeping secrets. This client defended peer's thoughts about snitching.
--- NOTE | 2017-01-08 13:13 | NUR ---
Education note: Client attended speaker Mayito for education today.
--- NOTE | 2017-01-08 22:41 | NUR ---
EDUCATION NOTE: 1 HR Counselor gave a lecture on Disease Concept
--- NOTE | 2017-01-08 23:38 | NUR ---
tech note: client played Pictionary for recreation & attended onsite NA mtg. SE: 30 days clean.
--- NOTE | 2017-01-09 04:09 | NUR ---
BED NOTE: Client was awake first two bed checks, was in bed motionless with eyes closed last check.
--- NOTE | 2017-01-09 11:45 | NUR ---
Group 1.5 hrs 2:20 Client sat quietly through out group. Client shared when prompted to say what he was grateful for. Student: Kevyn Ross
--- NOTE | 2017-01-09 15:29 | NUR ---
Tech Note: Client participated in Spiritual Enrichment in the morning and went for an outdoor walk in the afternoon. Client stated that he is working on, "Relapse Prevention."
--- NOTE | 2017-01-09 16:30 | NUR ---
Step ed./1 hr/ Focus was on step 7 "Humbly asked him to remove our shortcomings". Had them complete some questions on paper then discussed. This client participated.
--- NOTE | 2017-01-09 22:07 | NUR ---
EDUCATION NOTE 1HR: Recovery committee presented information on recovery
--- NOTE | 2017-01-09 22:11 | NUR ---
EDUCATION NOTE 1HR: Clients watched Mike Timmons video on Behavior
--- NOTE | 2017-01-09 22:36 | NUR ---
TECH NOTE: Client helped by doing crafts for the dance for REC, and attended AA meeting.
--- NOTE | 2017-01-10 04:39 | NUR ---
Bed note: client was in bed moitionless with eyes closed and no distress at all bed checks.
--- NOTE | 2017-01-10 12:56 | NUR ---
Group 1.5 Hr Ratio 1:11/Topics today were orientating a new member to group rules and goals and a couple getting started packets. Client shared positive feedback about how he could relate and how he looks at rationalization and justifcation as different.
--- NOTE | 2017-01-10 15:57 | NUR ---
PEER REVIEWS 1.25 HRS: Clt participated in peer reviews and took a risk to give open and honest feedback to those receiving a review. Client also had a review done where he heard he doesn't show his feelings, he is afraid, has a lot of sadness, is over confident, and is lost. Client shared he felt glad and afraid.
--- NOTE | 2017-01-10 16:09 | NUR ---
Tech Note: Client watched video (The Enablers) and is working on the Big Book.
--- NOTE | 2017-01-10 22:14 | NUR ---
Tech Note : Client worked crafts and projects for the dance. Client watched TV. Went to an offsite AA meeting.
--- NOTE | 2017-01-11 04:36 | NUR ---
Bed note: Client was in bed with eyes closed and no distress at all bed checks, except talked to tech at 2nd bed check
--- NOTE | 2017-01-11 17:52 | NUR ---
Tech Note: Client attended N.A. Panel and is working on himself. Client had visitor, and was late to meditation this morning.
--- NOTE | 2017-01-11 19:08 | NUR ---
tech note: client attended offsite Alumni Dance.
--- NOTE | 2017-01-12 04:52 | NUR ---
BED NOTE: Client was in bed, motionless with eyes closed all three bed checks.
--- NOTE | 2017-01-12 16:39 | NUR ---
Tech Note: Client participated in Big Book Study in the morning and went for a walk in the afternoon. Client stated that he is working on readin the Big Book. Client attended gnosticist.
--- NOTE | 2017-01-12 23:09 | NUR ---
tech note: Client attended AA Panel & participated in Community Clean. Client spent a lot of time on the phone. SE: Last Day.
--- NOTE | 2017-01-13 04:12 | NUR ---
bed note: client was in bed with eyes closed and no distress at all bed checks.
--- NOTE | 2017-01-13 10:40 | NUR ---
Tech notes: Client is working on BB
--- NOTE | 2017-01-13 12:00 | NUR ---
Peer Review 1.5 hr/ Clients all participated in giving peer review to 4 peers on what they need to work on.
--- NOTE | 2017-01-13 12:54 | NUR ---
Education note: Client attended educational jane Payton on Marijuana.
--- NOTE | 2017-01-13 14:16 | NUR ---
I.S. 1 Hr/Client shared he is ready to move on and we completed a CCP and set up aftercare in [place]. Client completed a residential survey and is looking forward to moving on with his sober life.
--- NOTE | 2017-01-13 16:41 | NUR ---
Recovery 101 1 hr/ Clients discussed fundamental tools and what is important to work a strong recovery program such as: 12 steps, getting and using a sponsor, meetings/home group, read C.A.L., H.O.W./being honest, service work, HP concepts/spirituality, opening up, slogans, serenity prayer, etc. Also discussed the balance, recovery as way of life, 85% is the living problem and why people still go to meetings for their lifetime.
--- NOTE | 2017-01-13 21:00 | NUR ---
FAMILY GROUP 4;/ HR: Client, peers and attending family members heard several residential clients and their loved ones process FEELINGS LETTERS. Much of the focus tonight was on enabling and several attending family members owned that they are guilty of this and struggle with the concept of "tough love." Broken promises were also a common thread and family members are begining to see that they want to believe so badly that it sets them up to be manipulated in various ways. This client attended with both of his parents, his 20 y/o son and his fiance. Client had letters for son and fiance and a letter for both parents. Client showed emotion only with his son's letter and son burst in to tears the minute client started to read. Son regained his composure, but owned sadness and hurt for time missed with his dad. It was obvious that he tries to "be there" for dad rather than the other way around. Son admitted that he has blamed himself for the emotional distance between them in the past. [facility] Client's letter to his mignone owned behaviors, verbal and emotional abuse. Her letter echoed the same with her setting boundaries that she won't stick around if he continues to drink. Client's letter to his parents sounded angry; Mom's owned their enabling of client stating that they realize they need to turn him over to God as all that they have tried to do has not changed anything. Mom also said she will start going to [facility]. Staff quoted pages from Garc[facility] STONE that read that though our intentions are pure, sometimes we need to just get out of God's way and let him do his work. Client stating that he will check in to sober living in [place]. Client's job will be a real test of his willingness to work a strong program.
--- NOTE | 2017-01-14 04:56 | NUR ---
Discharge Note Client left at 2114 with all of his belongings. Client signed paperwork and left with his family.
--- NOTE | 2017-02-23 15:28 | DS ---
ADMIT: 12/17/2016 RM/LOC: Kristel [facility] MR#: [id number] [facility] [address] [place], [place] [id number] KANNAN LUGO [address] [place] [address] General Discharge Summary SEX: M AGE: 41 : 1975 ADMISSION DATE: 12/17/2016 DISCHARGE DATE: 01/13/2017 INDICATION FOR HOSPITALIZATION: Kannan is a 41-year-old, , white male, admitted [facility] for detox and then to residential level treatment on December 17. He was at [facility], December 06 through the . His drug of choice on admission was alcohol. Second drug of choice is cannabis. Third drug of choice is opiate pain pills. Please see his admission H and P for further details regarding his history of present illness, past medical history, physical exam, and assessment at time of hospitalization. HOSPITAL COURSE: On admission, Kannan was started on multivitamin and thiamine. His hydrochlorothiazide and clonidine were discontinued. Serial blood pressure and heart rate monitoring was undertaken. Melatonin was ordered for his sleep disorder. Losartan was later started for hypertension. Claritin was later added for allergies. Eczema was noted and some triamcinolone cream was ordered. During treatment, his primary care counselor assigned was True Montes De Oca, , LMHP, LADC, CSAT. During treatment, he underwent individual and group therapy sessions on drug and alcohol abuse dependency. He completed an educational series on substance abuse. He shared feelings letters with his family. Relapse triggers were identified and relapse prevention plan was outlined. He was overall accepting of his substance abuse problems. He completed step 1 of Alcoholics Anonymous. Reason for discharge was completion of residential level treatment goals. Aftercare recommendations include sponsor assignment, outpatient counseling with active AA and NA meeting involvement. LABORATORY AND X-RAY DATA: Include December 31; sodium 141, potassium 4.2, BUN of 15, creatinine 1.3 with glucose of 89, TSH 2.45. DISCHARGE MEDICATIONS: Medications at time of discharge include: 1. Cozaar 50 mg daily. 2. Multivitamin one daily. 3. Thiamine 100 mg daily. 4. Hytone 2.5% b.i.d. p.r.n., eczema. 5. Kenalog cream 0.1% apply once daily p.r.n. eczema. ADMIT: 12/17/2016 RM/LOC: Kristel [facility] MR#: [id number] [id number] [address] KANNAN LUGO [address] [place] [address] General Discharge Summary SEX: M AGE: 41 : 1975 DISCHARGE DIAGNOSES: Include: 1. Alcohol use disorder, severe. 2. Cannabis use disorder, moderate, in full sustained remission. 3. Opiate use disorder, mild, in full sustained remission. 4. Tobacco dependency. 5. Sleep disorder. 6. Benign essential hypertension. 7. Eczema. PROCEDURES: Include drug and alcohol abuse dependency treatment and counseling. Please see his hospital record for the details. Eben Temple MD/ sena JOB #: [id number] CC: Eben Temple MD, Attending Physician NO FAMILY PHYSICIAN, Family Physician
== END 2017-01-13 21:15 | disposition home or self-care (01) | DRG 895 ==
LOC: ADTC 07:30
PROVIDERS: ADMIT Family Medicine
PROC: HZ43ZZZ Group Counseling for Substance Abuse Treatment, 12-Step (ICD-10-PCS; principal; 2016-12-17)
PROC: HZ34ZZZ Individual Counseling for Substance Abuse Treatment, Interpersonal (ICD-10-PCS; principal; 2016-12-17)
DX: F10.20 Alcohol dependence, uncomplicated (principal); I10 Essential (primary) hypertension; F11.21 Opioid dependence, in remission; F12.21 Cannabis dependence, in remission; F17.220 Nicotine dependence, chewing tobacco, uncomplicated; F17.210 Nicotine dependence, cigarettes, uncomplicated; L30.9 Dermatitis, unspecified; G47.9 Sleep disorder, unspecified; L85.3 Xerosis cutis; Z98.1 Arthrodesis status